=== PATIENT | female | born 1965 | race Hispanic/Latino ===

== ENCOUNTER 2016-10-26 04:38 | Inpatient (IN) | payer MEDICARE, OTHER ==
[2016-10-26 04:38] VITALS: BMI 42.9
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
[2016-10-26 06:30] LABS: BASO % 0.3 % (0.0-2.0); EOS # 0.3 K/uL (0.0-0.7); EOS % 2.7 % (0.0-4.0); HEMATOCRIT 40.2 % (34.0-47.0); LYMPH # 3.9 K/uL (1.0-4.3); LYMPH % 33.4 % (20.0-40.0); MEAN CELL VOLUME 82.9 fl (81.0-99.0); MEAN CORPUSCULAR HEMOGLOBIN 27.1 pg (27.0-31.0); MEAN CORPUSCULAR HGB CONC 32.7 g/dL (33.0-37.0); MEAN PLATELET VOLUME 7.3 fl (7.2-11.7); MONO # 0.9 K/uL (0.0-0.8); MONO % 7.7 % (0.0-10.0); NEUT # 6.5 K/uL (1.8-7.0); NEUT % 55.9 % (50.0-75.0); NRBC % 0.1 % (0.0-0.0); RED CELL DISTRIBUTION WIDTH 14.4 % (11.5-14.5); WHITE BLOOD COUNT 11.5 K/uL (4.8-10.8)
[2016-10-26 06:40] LABS: PARTIAL THROMBOPLASTIN TIME 26.4 SECONDS (23.3-32.5)
[2016-10-26 06:45] LABS: ALB/GLOB RATIO 1.2 (1.0-2.1); ALKALINE PHOSPHATASE 80 U/L (38-126); ALT/SGPT 34 U/L (9-52); AST/SGOT 32 U/L (14-36); BILIRUBIN,TOTAL 0.2 mg/dl (0.2-1.3); BLOOD UREA NITROGEN 16 mg/dl (7-17); CALCIUM 9.3 mg/dL (8.4-10.2); CARBON DIOXIDE 26 mmol/L (22-30); CHLORIDE 103 mmol/L (98-107); GFR AFRICAN-AMERICAN > 60; GLUCOSE,RANDOM 123 mg/dL (65-105); SODIUM 139 mmol/l (132-148); TOTAL PROTEIN 7.3 G/DL (6.3-8.2)
[2016-10-26 07:49] LABS: RBC URINE 14 /hpf (0-3); URINE BACTERIA RARE (<OCC); URINE BILIRUBIN NEGATIVE (NEGATIVE); URINE BLOOD NEGATIVE (NEGATIVE); URINE CALCIUM OXALATE CRYSTALS MOD /hpf (<OCC); URINE COLOR YELLOW (YELLOW); URINE GLUCOSE (UA) NEG (Normal); URINE KETONE NEGATIVE (NEGATIVE); URINE LEUKOCYTE ESTERASE TRACE Leu/uL (Negative); URINE PROTEIN 30 mg/dL (NEGATIVE); URINE UROBILINOGEN 0.2-1.0 mg/dL (0.2-1.0); WBC URINE 11 /hpf (0-5)
--- NOTE | 2016-10-26 10:56 | RAD ---
HISTORY: clearance COMPARISON: Comparison is made to the previous study dated 06/15/2016 FINDINGS: LUNGS: No active pulmonary disease. PLEURA: No significant pleural effusion identified, no pneumothorax apparent. CARDIOVASCULAR: Normal. OSSEOUS STRUCTURES: No significant abnormalities. VISUALIZED UPPER ABDOMEN: Normal. OTHER FINDINGS: None. IMPRESSION: SUBOPTIMAL STUDY DUE TO PORTABLE TECHNIQUE. NO SIGNIFICANT INTERVAL CHANGE SINCE THE PREVIOUS EXAM.
--- NOTE | 2016-10-26 11:10 | MRI ---
PROCEDURE: MR LUMBAR SPINE WITHOUT CONTRAST HISTORY: back pain, as requested by Dr. Estrada COMPARISON: Comparison is made to the previous study dated 06/15/2016 TECHNIQUE: Multiecho multiplanar sequences were performed through the lumbar spine without the use of intravenous contrast. FINDINGS: Normal lumbar lordosis. Vertebral body heights are preserved. Marrow signal unremarkable. Conus medullaris unremarkable at the level of T12-L1 Paraspinal soft tissues are unremarkable. T12-L1: Again seen is mild to moderate narrowing of the intervertebral disc space anterior osteophyte disc bulging complex seen. No significant spinal or neural foraminal narrowing. L1-2: Mild degenerative disc changes. Small disc bulging. No disc herniation, spinal canal stenosis or neural foraminal narrowing. L2-3: No disc herniation, spinal canal stenosis or neural foraminal narrowing. L3-4: Ywfv-mi-pbchgtbd degenerative disc changes. [id number]-[id number] narrowing of the disc space. Small broad-based disc bulging seen without significant narrowing of the spinal canal stenosis or neural foraminal narrowing. L4-5: Small broad-based disc bulging seen associated with posterior ligament and facet joint hypertrophy. Mild bilateral narrowing of the lateral recesses. L5-S1: Again seen is small to moderate size disc herniation associated with annular tear. There is narrowing of the lateral recess bilaterally slightly more on the left. No evidence of neural foraminal narrowing. Moderate degenerative disc changes. OTHER FINDINGS: None. IMPRESSION: Re- demonstration of small to moderate size disc herniation at L5-S1 associated with annular tear and mild posterior ligament and facet joints hypertrophy. Mild narrowing of the lateral recess bilaterally at L4-L5 and L5-S1. Broad-based small disc bulging at L4-L5. Multilevel yfrb-vr-avvvofnb degenerative disc changes.
[2016-10-26] MEDS ORDERED: Oxycodone/Acetaminophen 5/325 mg Tab PO PRN (13:35)
[2016-10-26] MEDS: Oxycodone/Acetaminophen 5/325 mg Tab PO PRN ×2 (13:50→20:57)
[2016-10-27] MEDS ORDERED: Lidocaine 1% w Epi 1:100,000 Inj ONE (07:11)
[2016-10-27] MEDS ORDERED: Absorbable Gelatin Sponge Size 12-7 ONE (07:11)
[2016-10-27] MEDS ORDERED: Thrombin Topical 5,000 IU Spray Kit ONE (07:11)
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
[2016-10-27] MEDS ORDERED: Lidocaine 4% (Laryng-O-Jet) Kit MM ONE (09:19)
[2016-10-27] MEDS ORDERED: Propofol 10 mg/ml Inj (20 ML) ONE ×2 (09:34→10:03)
[2016-10-27] MEDS ORDERED: Succinylcholine 200 mg/10 ml Inj IV ONE (09:35)
[2016-10-27] MEDS ORDERED: Rocuronium 10 mg/ml (5 ml) ONE ×2 (09:35→09:36)
[2016-10-27] MEDS ORDERED: Midazolam 2 MG/2 ML VIAL ONE (09:35)
[2016-10-27] MEDS ORDERED: ePHEDrine 50 mg/ml Inj ONE (09:37)
[2016-10-27] MEDS ORDERED: Gentamicin 80mg/50ml NS 50 ML IVPB ONE (09:41)
[2016-10-27] MEDS ORDERED: Gentamicin 80 mg/2mL Inj. IVPB ONE (09:55)
[2016-10-27] MEDS ORDERED: Neostigmine Methylsulfate 3mg/3ml Syringe IV ONE (10:22)
[2016-10-27] MEDS ORDERED: Neostigmine Methylsulfate 2 MG/2 ML ML IV ONE (10:22)
[2016-10-27] MEDS: Bupivacaine HCl 0.25% PF (30 ml) Inj ONE ×2 (10:38→10:45)
[2016-10-27] MEDS ORDERED: Lactated Ringer's 1,000 ML IV ONE (10:39)
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
[2016-10-27] MEDS: HYDROmorphone 0.5 mg/0.5 ml ISec IVP PRN ×4 (11:30→12:15)
--- NOTE | 2016-10-27 11:47 | RAD ---
PROCEDURE: Intraoperative fluoroscopy HISTORY: LUMBAR LAMINECTOMY COMPARISON: Not available TECHNIQUE: Intraoperative fluoroscopy was provided for lumbar laminectomy. Total time of fluoroscopy was 11.5 seconds. FINDINGS: A single fluoroscopic spot film is submitted. This is on file for review peer IMPRESSION: Fluoroscopy provided.
[2016-10-27] MEDS: Lactated Ringer's 1,000 ML IV SCH ×2 (13:00→20:51)
[2016-10-27] MEDS ORDERED: ceFAZolin 1 GM in Sodium Chloride 0.9% 100 ML IVPB SCH (21:00)
[2016-10-27] MEDS ORDERED: GENTAMICIN IVPB SCH (21:00)
[2016-10-27] MEDS ORDERED: NS IVPB SCH (21:00)
[2016-10-27] MEDS ORDERED: Docusate-Senna 50 mg-8.6 mg Tab PO SCH (22:00)
[2016-10-27] MEDS ORDERED: Benzocaine/Menthol (Cepacol) Lozenge PO PRN (23:18)
[2016-10-27] MEDS: Oxycodone/Acetaminophen 5/325 mg Tab PO PRN (23:29)
[2016-10-28] MEDS ORDERED: Oxycodone/Acetaminophen 5/325 mg Tab PO PRN ×2 (03:04→03:05)
[2016-10-28] MEDS: Lactated Ringer's 1,000 ML IV SCH (03:21)
[2016-10-28 07:58] VITALS: RESP 20; O2SAT 95
--- NOTE | 2016-10-28 09:22 | OP ---
PROCEDURE DATE: 10/28/2016 PREOPERATIVE DIAGNOSIS: Lumbar herniated disk at L5-S1. POSTOPERATIVE DIAGNOSIS: Lumbar herniated disk at L5-S1. PROCEDURE: Left L5-S1 hemilaminotomy, medial facetectomy, decompression of nerve root. DESCRIPTION OF PROCEDURE: The patient was brought to the operating room, administered with general e ndotracheal anesthesia, placed in the prone position on the Nikolai table. Care was taken to protect all pressure points. Back of the lumbar area thoroughly prepped in standard sterile manner after ma rking for skin incision for lumbar laminotomy and microdiskectomy at L5-S1. After prepping and drapi ng the area, skin has been incised. Bleeding skin edges have been controlled with bipolar sewer separation designer . After placing a Bovie sewer separation designer, paraspinal muscles have been detached from attachment of spinous process and lamina of L5-S1 on the left side. Marjorie retractor has been applied to lateral facet of L5-S1. By using a high-speed drill, the lamina of L5-S1 and medial part of facets of L5-S1 have bee n drilled under microscope magnification and illumination. This has been done with a high speed dril l. By using a fine Kerrison punch, thinned out surrounding lamina, medial part of the facets, ligame ntum flavum has been removed. Nerve root and dural tube retracted medially. There was a central her niated disk noted. No extruded fragment noted. Hence, foraminotomy was performed. After that, hemo stasis best achieved. Fascia closed, intraspinous ligament, spinous process with 1-0 Vicryl, subcuta neous with 3-0 Vicryl, skin has been closed with intradermal 3-0 Vicryl stitches. The patient tolera salazar the procedure. After procedure, mobilized to the recovery room in stable condition. Rasheed Estrada MD cc: [id number] TT: 10/28/2016 09:48:12 en
[2016-10-28 09:59] LABS: CHLORIDE 99 mmol/L (98-107); POTASSIUM 4.4 MMOL/L (3.6-5.0); SODIUM 139 mmol/l (132-148)
[2016-10-28 10:02] LABS: BLOOD UREA NITROGEN 11 mg/dl (7-17); CARBON DIOXIDE 28 mmol/L (22-30); GFR AFRICAN-AMERICAN > 60; GLUCOSE,RANDOM 143 mg/dL (65-105)
[2016-10-28 10:07] LABS: HEMATOCRIT 40.6 % (34.0-47.0); MEAN CELL VOLUME 84.2 fl (81.0-99.0); MEAN CORPUSCULAR HEMOGLOBIN 27.1 pg (27.0-31.0); MEAN CORPUSCULAR HGB CONC 32.2 g/dL (33.0-37.0); RED CELL DISTRIBUTION WIDTH 14.3 % (11.5-14.5); WHITE BLOOD COUNT 13.7 K/uL (4.8-10.8)
--- NOTE | 2016-10-28 10:12 | CP.PCM.DIS ---
Provider - Provider Date of Admission: 10/26/16 05:20 Attending physician: Tien Duran MD Primary care physician: Sara May MD Consults: Neurosurgery Time Spent in preparation of Discharge (in minutes): 30 Diagnosis - Discharge Diagnosis (1) Herniated intervertebral disc of lumbar spine Status: Acute Hospital Course - Lab Results Lab Results: Most Recent Lab Values WBC 11.5 K/uL (4.8-10.8) H 10/26/16 05:39 RBC 4.84 Mil/uL (3.80-5.20) 10/26/16 05:39 Hgb 13.1 g/dL (12.0-16.0) 10/26/16 05:39 Hct 40.2 % (34.0-47.0) 10/26/16 05:39 MCV 82.9 fl (81.0-99.0) 10/26/16 05:39 MCH 27.1 pg (27.0-31.0) 10/26/16 05:39 MCHC 32.7 g/dL (33.0-37.0) L 10/26/16 05:39 RDW 14.4 % (11.5-14.5) 10/26/16 05:39 Plt Count 327 K/uL (130-400) 10/26/16 05:39 MPV 7.3 fl (7.2-11.7) 10/26/16 05:39 Neut % (Auto) 55.9 % (50.0-75.0) 10/26/16 05:39 Lymph % (Auto) 33.4 % (20.0-40.0) 10/26/16 05:39 Cooper % (Auto) 7.7 % (0.0-10.0) 10/26/16 05:39 Eos % (Auto) 2.7 % (0.0-4.0) 10/26/16 05:39 Baso % (Auto) 0.3 % (0.0-2.0) 10/26/16 05:39 Neut # 6.5 K/uL (1.8-7.0) 10/26/16 05:39 Lymph # 3.9 K/uL (1.0-4.3) 10/26/16 05:39 Cooper # 0.9 K/uL (0.0-0.8) H 10/26/16 05:39 Eos # 0.3 K/uL (0.0-0.7) 10/26/16 05:39 Baso # 0.0 K/uL (0.0-0.2) 10/26/16 05:39 PT 9.7 SECONDS (9.6-11.2) 10/26/16 05:39 INR 0.93 (0.92-1.08) 10/26/16 05:39 APTT 26.4 SECONDS (23.3-32.5) 10/26/16 05:39 Sodium 139 mmol/l (132-148) 10/28/16 09:38 Potassium 4.4 MMOL/L (3.6-5.0) 10/28/16 09:38 Chloride 99 mmol/L (98-107) 10/28/16 09:38 Carbon Dioxide 28 mmol/L (22-30) 10/28/16 09:38 Anion Gap 17 (10-20) 10/28/16 09:38 BUN 11 mg/dl (7-17) 10/28/16 09:38 Creatinine 0.9 mg/dL (0.7-1.2) 10/28/16 09:38 Est GFR ( Amer) > 60 10/28/16 09:38 Est GFR (Non-Af Amer) > 60 10/28/16 09:38 Random Glucose 143 mg/dL (65-105) H 10/28/16 09:38 Calcium 9.0 mg/dL (8.4-10.2) 10/28/16 09:38 Total Bilirubin 0.2 mg/dl (0.2-1.3) 10/26/16 05:39 AST 32 U/L (14-36) 10/26/16 05:39 ALT 34 U/L (9-52) 10/26/16 05:39 Alkaline Phosphatase 80 U/L (38-126) 10/26/16 05:39 Total Protein 7.3 G/DL (6.3-8.2) 10/26/16 05:39 Albumin 4.0 g/dL (3.5-5.0) 10/26/16 05:39 Globulin 3.4 gm/dL (2.2-3.9) 10/26/16 05:39 Albumin/Globulin Ratio 1.2 (1.0-2.1) 10/26/16 05:39 Serum HCG, Qual Negative (NEGATIVE) 10/26/16 05:39 Urine Color Yellow (YELLOW) 10/26/16 06:50 Urine Clarity Slighty-cloudy (Clear) 10/26/16 06:50 Urine pH 6.0 (5.0-8.0) 10/26/16 06:50 Ur Specific [place] 1.020 (1.003-1.030) 10/26/16 06:50 Urine Protein 30 mg/dL (NEGATIVE) 10/26/16 06:50 Urine Glucose (UA) Neg mg/dL (Normal) 10/26/16 06:50 Urine Ketones Negative mg/dL (NEGATIVE) 10/26/16 06:50 Urine Blood Negative (NEGATIVE) 10/26/16 06:50 Urine Nitrate Negative (NEGATIVE) 10/26/16 06:50 Urine Bilirubin Negative (NEGATIVE) 10/26/16 06:50 Urine Urobilinogen 0.2-1.0 mg/dL (0.2-1.0) 10/26/16 06:50 Ur Leukocyte Esterase Trace Martin/uL (Negative) 10/26/16 06:50 Urine RBC (Auto) 14 /hpf (0-3) H 10/26/16 06:50 Urine Microscopic WBC 11 /hpf (0-5) H 10/26/16 06:50 Ur Squamous Epith Cells 2 /hpf (0-5) 10/26/16 06:50 Calcium Oxalate Crystal Mod /hpf (<OCC) H 10/26/16 06:50 Urine Bacteria Rare (<OCC) 10/26/16 06:50 Blood Type A NEGATIVE 10/26/16 05:50 Antibody Screen Negative 10/26/16 05:50 BBK History Checked Patient has bt 10/26/16 05:50 - Hospital Course Hospital Course: Pt was admitted to the hospital due to intractable back pain due to disc herniation, had a laminectomy the following morning and physical therapy this morning for which she was able to ambulate around the hospital floor. Pain is controlled with current regime as well. Discharge Exam - Head Exam Head Exam: ATRAUMATIC, NORMAL INSPECTION, NORMOCEPHALIC - Eye Exam Eye Exam: Normal appearance, PERRL Pupil Exam: NORMAL ACCOMODATION - ENT Exam ENT Exam: Mucous Membranes Moist - Respiratory Exam Respiratory Exam: NORMAL BREATHING PATTERN - Cardiovascular Exam Cardiovascular Exam: REGULAR RHYTHM, +S1, +S2 - GI/Abdominal Exam GI & Abdominal Exam: Normal Bowel Sounds, Soft. absent: Tenderness - Extremities Exam Extremities exam: normal inspection - Back Exam Additional comments: surgical site neatly dressed - Neurological Exam Neurological exam: Alert, CN II-XII Intact, Oriented x3 Discharge Plan - Discharge Medications Prescriptions: oxyCODONE/Acetaminophen [Percocet 5/325 mg Tab] 1 tab PO Q6H PRN #60 tab PRN Reason: Pain, Severe (8-10) - Follow Up Plan Condition: STABLE Disposition: HOME/ ROUTINE Instructions: Laminectomy (DC), How To Wash Your Hands (GEN), Back Pain (GEN) Additional Instructions: Please follow up with Dr. ellis as originally discussed before surgery Please follow up with PCP in 2-3wks Outpatient script for Physical therapy has been written for you as well. Referrals: Rasheed Ellis MD [Staff Provider] - Sara May MD [Primary Care Provider] -
--- NOTE | 2016-10-28 11:43 | RAD ---
HISTORY: preop COMPARISON: 10/26/2016 TECHNIQUE: Chest PA and lateral FINDINGS: LUNGS: The lungs are well inflated and clear. PLEURA: No significant pleural effusion identified. No pneumothorax apparent. CARDIOVASCULAR: The cardiomediastinal silhouette is normal. OSSEOUS STRUCTURES: No significant abnormalities. VISUALIZED UPPER ABDOMEN: Normal. OTHER FINDINGS: None. IMPRESSION: No active pulmonary disease.
[2016-10-28 11:52] VITALS: BP 117/71; PULSE 90; TEMP 97.6
--- NOTE | 2016-11-01 17:16 | CARD ---
APPROVED REPORT EKG Measurement Heart [id number] ID [id number] <Conclusion> Normal sinus rhythm Left bundle branch block Abnormal ECG
== END 2016-10-28 14:51 | disposition home or self-care (01) | DRG 520 ==
LOC: H.ER 04:38 → H.ERHOLD 05:20 → H.MEDSURG1 07:11 → H.TEL 10-27 12:59
PROVIDERS: ADMIT Family Medicine; ATTEND Family Medicine
PROC: 0SB40ZZ Excision of Lumbosacral Disc, Open Approach (ICD-10-PCS; 2016-10-27)
PROC: 01NB0ZZ Release Lumbar Nerve, Open Approach (ICD-10-PCS; principal; 2016-10-27 09:30)
PROC: F07Z9FZ Gait Training/Functional Ambulation Treatment using Assistive, Adaptive, Supportive or Protective Equipment (ICD-10-PCS; 2016-10-28)
DX: M51.27 Other intervertebral disc displacement, lumbosacral region (principal); M47.816 Spondylosis without myelopathy or radiculopathy, lumbar region; Z87.891 Personal history of nicotine dependence; Z87.442 Personal history of urinary calculi

== ENCOUNTER 2016-11-01 12:06 | Emergency (ER) | payer MEDICARE ==
[2016-11-01 12:06] VITALS: BMI 42.9
[2016-11-01 12:41] VITALS: BP 122/72; PULSE 96; RESP 16; TEMP 97.9; O2SAT 95
--- NOTE | 2016-11-01 13:16 | ED PDOC ---
HPI: General Adult Time Seen by Provider: 11/01/16 12:59 Chief Complaint (Nursing): Wound Check Chief Complaint (Provider): Wound Check History Per: Patient History/Exam Limitations: no limitations Onset/Duration Of Symptoms: Hrs Current Symptoms Are (Timing): Still Present Severity: None Additional Complaint(s): Patient is a 50 year old female with a history of laminectomy on 10/27/16, presents to ED for wound evaluation after noticing bleeding today. Patient states surgery went well with no complications. Notes she woke up this morning with a small amount of blood on her bandage, walked to the bathroom and felt the down her back. Patient denies any pain, called Dr. Estrada service but he is in surgery today which prompted ED visit Past Medical History Reviewed: Historical Data, Nursing Documentation, Vital Signs Vital Signs: Last Vital Signs Temp 97.9 F 11/01/16 12:38 Pulse 96 H 11/01/16 12:38 Resp 16 11/01/16 12:38 BP 122/72 11/01/16 12:38 Pulse Ox 95 11/01/16 13:21 - Medical History PMH: Arthritis, Gall Bladder Disease (gallstones), Kidney Stones Denies: Anxiety, Bipolar Disorder, Depression, HIV, Paranoia, Post Traumatic Stress Disorder, Chronic Kidney Disease, Schizophrenia - Surgical History Surgical History: Tonsillectomy (ADENOIDECTOMY) Denies: CABG, Coronary Stent, Pacemaker Other surgeries: laminectomy 10/27/16 - Family History Family History: States: No Known Family Hx - Living Arrangements Living Arrangements: With Family - Home Medications Home Medications: Ambulatory Orders Medication Instructions Recorded Methylprednisolone [Medrol Dose 4 mg PO DAILY #21 mg 06/18/16 Pack (21 tabs)] Cyclobenzaprine [Flexeril] 10 mg PO HS #20 tab 10/28/16 Docusate [Colace] 100 mg PO BID #30 cap 10/28/16 oxyCODONE/Acetaminophen [Percocet 1 tab PO Q6H PRN #60 tab 10/28/16 5/325 mg Tab] - Allergies Allergies/Adverse Reactions: Allergies Allergy/AdvReac Type Severity Reaction Status Date / Time No Known Allergies Allergy Verified 06/15/16 07:32 Review of Systems ROS Statement: Except As Marked, All Systems Reviewed And Found Negative Constitutional: Negative for: Fever, Chills Musculoskeletal: Negative for: Neck Pain, Back Pain, Leg Pain Skin: Positive for: Other (Bleeding). Negative for: Rash Neurological: Negative for: Weakness, Numbness Physical Exam - Reviewed Nursing Documentation Reviewed: Yes Vital Signs Reviewed: Yes - Physical Exam Appears: Positive for: Non-toxic, No Acute Distress Head Exam: Positive for: ATRAUMATIC Skin: Positive for: Normal Color, Warm Eye Exam: Positive for: Normal appearance Neck: Positive for: Normal Back: Positive for: Other (14cm surgical wound with small distal area of dehistance (-) active bleeding (-) erythema (-) warmth ) Extremity: Positive for: Normal ROM Neurologic/Psych: Positive for: Alert, Oriented - ECG O2 Sat by Pulse Oximetry: 95 (RA) Pulse Ox Interpretation: Normal - Progress ED Course And Treament: Case d/w Dr. Estrada and states these findings are normal and pt. can be discharged to f/u in his office as previously scheduled. Medical Decision Making Medical Decision Making: Time: 1315 Initial Impression: Wound check Initial Plan: -- CMP -- CBC -- PT/PTT Scribe Attestation: Documented by Tyra Munoz, acting as a scribe for Lam Ramirez PA-C. Provider Scribe Attestation: All medical record entries made by the Scribe were at my direction and personally dictated by me. I have reviewed the chart and agree that the record accurately reflects my personal performance of the history, physical exam, medical decision making, and the department course for this patient. I have also personally directed, reviewed, and agree with the discharge instructions and disposition. Disposition - Clinical Impression Clinical Impression: Encounter for post surgical wound check - Patient ED Disposition Is Patient to be Admitted: No - Disposition Referrals: Rasheed Estrada MD [Staff Provider] - Disposition: Routine/Home Disposition Time: 14:39 Condition: STABLE Additional Instructions: Follow up with Dr. Estrada as previously scheduled without fail. Instructions: [facility] (ED)
[2016-11-01 14:28] LABS: BASO % 0.3 % (0.0-2.0); EOS # 0.4 K/uL (0.0-0.7); EOS % 2.8 % (0.0-4.0); HEMATOCRIT 40.5 % (34.0-47.0); LYMPH # 3.6 K/uL (1.0-4.3); LYMPH % 24.6 % (20.0-40.0); MEAN CELL VOLUME 83.3 fl (81.0-99.0); MEAN CORPUSCULAR HEMOGLOBIN 27.2 pg (27.0-31.0); MEAN CORPUSCULAR HGB CONC 32.6 g/dL (33.0-37.0); MEAN PLATELET VOLUME 7.4 fl (7.2-11.7); MONO # 0.9 K/uL (0.0-0.8); MONO % 6.4 % (0.0-10.0); NEUT # 9.6 K/uL (1.8-7.0); NEUT % 65.9 % (50.0-75.0); RED CELL DISTRIBUTION WIDTH 14.5 % (11.5-14.5); WHITE BLOOD COUNT 14.6 K/uL (4.8-10.8)
[2016-11-01 14:39] LABS: PARTIAL THROMBOPLASTIN TIME 26.9 SECONDS (23.3-32.5)
[2016-11-01 15:03] LABS: ALB/GLOB RATIO 1.1 (1.0-2.1); ALKALINE PHOSPHATASE 98 U/L (38-126); ALT/SGPT 56 U/L (9-52); AST/SGOT 48 U/L (14-36); BILIRUBIN,TOTAL 0.4 mg/dl (0.2-1.3); BLOOD UREA NITROGEN 11 mg/dl (7-17); CARBON DIOXIDE 29 mmol/L (22-30); CHLORIDE 99 mmol/L (98-107); GFR AFRICAN-AMERICAN > 60; GLUCOSE,RANDOM 102 mg/dL (65-105); POTASSIUM 4.5 MMOL/L (3.6-5.0); SODIUM 138 mmol/l (132-148); TOTAL PROTEIN 8.3 G/DL (6.3-8.2)
== END 2016-11-01 14:54 | disposition home or self-care (01) ==
LOC: H.ER 12:06
DX: Z48.89 Encounter for other specified surgical aftercare (principal)

== ENCOUNTER 2016-11-02 09:18 | Emergency (ER) | payer MEDICARE ==
[2016-11-02 09:18] VITALS: BMI 42.9
[2016-11-02 09:22] VITALS: BP 118/66; PULSE 87; TEMP 97; O2SAT 100
--- NOTE | 2016-11-02 10:21 | ED PDOC ---
HPI: General Adult Time Seen by Provider: 11/02/16 09:39 Chief Complaint (Nursing): Wound Check Chief Complaint (Provider): Bleeding wound History Per: Patient Have you had recent travel within the past 21 days to any of the following countries: [place], [place], [place] or [place]?: No Additional Complaint(s): Pt. with a lamenectomy [address] Estrada. Pt. doing well and noted some bleeding from incision yesterday so came to the ED. No bleeding seen so sent home. Back again to day as there was some bleeding from wound. No pain, numbness, tingles, weakness. Ambulating with no issues. No new injury. Past Medical History Vital Signs: Last Vital Signs Temp 97 F L 11/02/16 09:22 Pulse 87 11/02/16 09:22 Resp BP 118/66 11/02/16 09:22 Pulse Ox 100 11/02/16 10:45 - Medical History PMH: Arthritis, Gall Bladder Disease (gallstones), Kidney Stones Denies: Anxiety, Bipolar Disorder, Depression, HIV, Paranoia, Post Traumatic Stress Disorder, Chronic Kidney Disease, Schizophrenia - Surgical History Surgical History: Tonsillectomy (ADENOIDECTOMY) Denies: CABG, Coronary Stent, Pacemaker Other surgeries: lamenectomy - Family History Family History: States: Unknown Family Hx - Social History Alcohol: None Drugs: Denies - Home Medications Home Medications: Ambulatory Orders Medication Instructions Recorded Methylprednisolone [Medrol Dose 4 mg PO DAILY #21 mg 06/18/16 Pack (21 tabs)] Cyclobenzaprine [Flexeril] 10 mg PO HS #20 tab 10/28/16 Docusate [Colace] 100 mg PO BID #30 cap 10/28/16 oxyCODONE/Acetaminophen [Percocet 1 tab PO Q6H PRN #60 tab 10/28/16 5/325 mg Tab] - Allergies Allergies/Adverse Reactions: Allergies Allergy/AdvReac Type Severity Reaction Status Date / Time No Known Allergies Allergy Verified 06/15/16 07:32 Review of Systems ROS Statement: Except As Marked, All Systems Reviewed And Found Negative Physical Exam - Reviewed Nursing Documentation Reviewed: Yes Vital Signs Reviewed: Yes - Physical Exam Appears: Positive for: Non-toxic, No Acute Distress Head Exam: Positive for: ATRAUMATIC, NORMAL INSPECTION, NORMOCEPHALIC Skin: Positive for: Normal Color, Warm Cardiovascular/Chest: Positive for: Regular Rate, Rhythm Respiratory: Positive for: CNT, Normal Breath Sounds Gastrointestinal/Abdominal: Positive for: Normal Exam, Bowel Sounds, Soft. Negative for: Tenderness Back: Positive for: Other (lower vertical incision with no active bleeding; carlos in place; nontender). Negative for: L CVA Tenderness, R CVA Tenderness Extremity: Positive for: Normal ROM Neurologic/Psych: Positive for: Alert, Oriented - ECG O2 Sat by Pulse Oximetry: 100 Pulse Ox Interpretation: Normal - Progress ED Course And Treament: 1044: Pressure applied to incision. Dr. Estrada was paged. He wanted Essence paged. Essence was paged. Is in OR. Will call back. Pt. is aware and will wait. 1334: Pt. seen by Dr. Estrada [employer]. Will dc and fu with pcp. Aware plan and agree. Trauma dressings given to pt. to change and put on incision. Disposition - Clinical Impression Clinical Impression: Encounter for post surgical wound check - Patient ED Disposition Is Patient to be Admitted: No Counseled Patient/Family Regarding: Diagnosis, Need For Followup - Disposition Referrals: Rasheed Estrada MD [Staff Provider] - 11/03/16 Disposition: Routine/Home Disposition Time: 13:36 Condition: STABLE Additional Instructions: Return if not better in [address] Estrada without fail. Instructions: Acute Wound Care (ED)
[2016-11-02] MEDS ORDERED: Cellulose Hemostat 2X3 Sheet ONE (13:29)
== END 2016-11-02 14:08 | disposition home or self-care (01) ==
LOC: H.ER 09:18
DX: Z48.01 Encounter for change or removal of surgical wound dressing (principal)

== ENCOUNTER 2016-11-08 19:51 | Emergency (ER) | payer MEDICARE ==
[2016-11-08 19:51] VITALS: BMI 42.9
[2016-11-08 20:16] VITALS: BP 132/72; PULSE 79; RESP 20; TEMP 98.1; O2SAT 97
--- NOTE | 2016-11-08 20:59 | ED PDOC ---
HPI: Wound Care - HPI Time Seen by Provider: 11/08/16 20:48 Chief Complaint (Nursing): Wound Check Chief Complaint (Provider): wound check History Per: Patient History Of Present Illness: 50 y/o female status-post laminectomy 10/27/16 presents with painto surgical site x 1 day. Patient states she has been to ED twice since surgery for bleeding from site, but today noted area to be painful, red, and have some yellow drainage from site; which patient states is new. Denies fever, nausea/ vomiting, chest pain, shortness of breath, palpitations, back pain, urinary symptoms, changes in bowel movements. Past Medical History Reviewed: Historical Data, Nursing Documentation, Vital Signs Vital Signs: Last Vital Signs Temp 98.1 F 11/08/16 20:14 Pulse 79 11/08/16 20:14 Resp 20 11/08/16 20:14 BP 132/72 11/08/16 20:14 Pulse Ox 97 11/08/16 20:14 - Medical History PMH: Arthritis, Gall Bladder Disease (gallstones), Kidney Stones Denies: Anxiety, Bipolar Disorder, Depression, HIV, Paranoia, Post Traumatic Stress Disorder, Chronic Kidney Disease, Schizophrenia - Surgical History Surgical History: Tonsillectomy (ADENOIDECTOMY) Denies: CABG, Coronary Stent, Pacemaker - Family History Family History: States: Unknown Family Hx - Home Medications Home Medications: Ambulatory Orders Medication Instructions Recorded Methylprednisolone [Medrol Dose 4 mg PO DAILY #21 mg 06/18/16 Pack (21 tabs)] Cyclobenzaprine [Flexeril] 10 mg PO HS #20 tab 10/28/16 Docusate [Colace] 100 mg PO BID #30 cap 10/28/16 oxyCODONE/Acetaminophen [Percocet 1 tab PO Q6H PRN #60 tab 10/28/16 5/325 mg Tab] Cephalexin [Keflex] 500 mg PO Q6 #27 capsule 11/08/16 - Allergies Allergies/Adverse Reactions: Allergies Allergy/AdvReac Type Severity Reaction Status Date / Time No Known Allergies Allergy Verified 06/15/16 07:32 Review of Systems ROS Statement: Except As Marked, All Systems Reviewed And Found Negative Skin: Positive for: Lesions Physical Exam - Reviewed Nursing Documentation Reviewed: Yes Vital Signs Reviewed: Yes - Physical Exam Appears: Positive for: Well, Non-toxic, No Acute Distress Head Exam: Positive for: ATRAUMATIC, NORMAL INSPECTION, NORMOCEPHALIC Skin: Positive for: Normal Color Eye Exam: Positive for: Normal appearance ENT: Positive for: Normal ENT Inspection Cardiovascular/Chest: Positive for: Regular Rate, Rhythm Back: Positive for: Other (vertical lower back incisional site with carlos in place. Mild surrounding erythema, tender to touch. Prurulent pockets noted surrounding ends of carlos. Minimal active bleeding lower portion of wound. ) Extremity: Positive for: Normal ROM - Laboratory Results Result Diagrams: 11/08/16 22:28 11/08/16 22:28 - ECG O2 Sat by Pulse Oximetry: 97 - Progress ED Course And Treament: labs, wound culture, percocet PO Case discussed with Dr. Estrada; who states patient can be provided with Keflex rx and follow up with him Wed. Patient educated on findings, Keflex rx given (dose given in ED). New dressings applied Advised to follow up as scheduled. Dressing changes daily. REturn to ED for worsening/concerning symptoms. Disposition - Clinical Impression Clinical Impression: Encounter for post surgical wound check - Patient ED Disposition Is Patient to be Admitted: No Counseled Patient/Family Regarding: Studies Performed, Diagnosis, Need For Followup, Rx Given - Disposition Disposition: Routine/Home Disposition Time: 23:33 Condition: STABLE Additional Instructions: Follow up with Dr. Estrada as scheduled for Wed. Take medication as directed. Dressing change as previously instructed. Return to ED for worsening/concerning symptoms. Prescriptions: Cephalexin [Keflex] 500 mg PO Q6 #27 capsule Instructions: Acute Wound Care (ED)
[2016-11-08] MEDS ORDERED: Oxycodone/Acetaminophen 5/325 mg Tab PO ONE (21:01)
[2016-11-08] MEDS ORDERED: Oxycodone/Acetaminophen 5/325 mg Tab ONE (22:26)
[2016-11-08] MEDS: Oxycodone/Acetaminophen 5/325 mg Tab PO ONE (22:36)
[2016-11-08 22:45] LABS: BASO # 0.1 K/uL (0.0-0.2); BASO % 0.5 % (0.0-2.0); EOS # 0.3 K/uL (0.0-0.7); EOS % 2.4 % (0.0-4.0); HEMATOCRIT 39.7 % (34.0-47.0); LYMPH # 3.2 K/uL (1.0-4.3); MEAN CELL VOLUME 83.2 fl (81.0-99.0); MEAN CORPUSCULAR HEMOGLOBIN 27.5 pg (27.0-31.0); MEAN CORPUSCULAR HGB CONC 33.1 g/dL (33.0-37.0); MEAN PLATELET VOLUME 7.3 fl (7.2-11.7); MONO # 0.8 K/uL (0.0-0.8); MONO % 7.3 % (0.0-10.0); NEUT # 6.7 K/uL (1.8-7.0); NEUT % 60.8 % (50.0-75.0); NRBC % 0.1 % (0.0-0.0); RED CELL DISTRIBUTION WIDTH 14.2 % (11.5-14.5)
[2016-11-08 22:53] LABS: ALB/GLOB RATIO 1.1 (1.0-2.1); ALKALINE PHOSPHATASE 86 U/L (38-126); ALT/SGPT 41 U/L (9-52); AST/SGOT 46 U/L (14-36); BILIRUBIN,TOTAL 0.5 mg/dl (0.2-1.3); BLOOD UREA NITROGEN 17 mg/dl (7-17); CALCIUM 9.3 mg/dL (8.4-10.2); CARBON DIOXIDE 28 mmol/L (22-30); CHLORIDE 100 mmol/L (98-107); GFR AFRICAN-AMERICAN > 60; GLUCOSE,RANDOM 137 mg/dL (65-105); POTASSIUM 4.6 MMOL/L (3.6-5.0); SODIUM 143 mmol/l (132-148); TOTAL PROTEIN 7.8 G/DL (6.3-8.2)
== END 2016-11-09 00:01 | disposition home or self-care (01) ==
LOC: H.ER 19:51
DX: Z48.89 Encounter for other specified surgical aftercare (principal); M54.9 Dorsalgia, unspecified